=== PATIENT | female | born 1995 | race Caucasian/White ===

== ENCOUNTER 2022-04-10 14:54 | Day surgery (SDCO) | payer OTHER ==
[~2022-04-10 14:54] MED LIST: AUGMENTIN 875-1 EACH PO; INTRALIPID 20%500 ML IV; PHENERGAN12.5 M1 PO; PRENATAL TABLE1 EAC1 PO; TYLENOL325 M1 PO; VITAMIN K10 MG/ML IM; ZOFRAN2 MG/ML IVP; ZOFRAN4 MG PO; [UNRECOGNIZED DRUG - CODE] IV
[2022-04-10 15:50] LABS: BILIRUBIN NEGATIVE (NEGATIVE); BLOOD TRACE-INTACT Ery/uL (NEGATIVE); CLARITY CLEAR (CLEAR); COLOR YELLOW (YELLOW); GLUCOSE (U) NORMAL (NORMAL); LEUKOCYTES 2+ Leu/uL (NEGATIVE); NITRITE NEGATIVE (NEGATIVE); PROTEIN NEGATIVE (NEGATIVE); UROBILINOGEN 0.2 mg/dL (0.2-1.0); pH 7.5 (5.0-9.0)
[2022-04-10 15:57] LABS: BACTERIA TRACE; URINARY RBC RARE
[2022-04-10 16:26] LABS: PROTEIN:CREATININE 0.12 RATIO; URINE CREATININE 64.83 mg/dL (29.00-226.00)
[2022-04-10 16:38] LABS: HGB 13.3 g/dl (12.5-16.0); MCH 30.2 pg (25.0-31.0); MCV 86.2 fL (78.0-100.0); MPV 9.3 fL (6.0-9.5); RBC 4.41 M/uL (4.20-5.40); RDW 12.1 % (11.5-14.0); WBC 10.6 K/uL (4.0-10.5)
[2022-04-10 17:15] LABS: ALBUMIN 2.9 g/dL (3.4-5.0); BILIRUBIN - TOTAL 0.3 mg/dL (0.2-1.0); BUN/CREAT RATIO (CALC) 11.5 RATIO; CREATININE 0.61 mg/dL (0.51-0.95); GLOBULIN (CALCULATION) 3.9 g/dL; POTASSIUM 3.3 mmol/L (3.5-5.1); TOTAL PROTEIN 6.8 g/dL (6.4-8.2)
== END 2022-04-10 19:12 | disposition home or self-care (01) ==
LOC: FOD 14:54 → FOB 14:54 → FOD 15:51 → FOB 16:01
PROVIDERS: Specialist; ADMIT Obstetrics & Gynecology
DX: O13.3 Gestational [pregnancy-induced] hypertension without significant proteinuria, third trimester (principal); Z3A.33 33 weeks gestation of pregnancy
CPT/HCPCS: 36415; 80053; 81001; 82570; 83615; 84156; 84550; 86850; 86900; 86901; G0378